=== PATIENT | female | born 1950 | race Caucasian/White ===

== ENCOUNTER 2017-08-09 11:16 | Emergency (ER) | payer MEDICARE ==
[~2017-08-09 11:16] MED LIST: ALLERGY RELIEF10 M1 PO; B COMPLEX & B121 TAB PO; BEANO1 TAB PO; BIOFLAX1000 MG PO; CALCIUM 500 + D1 TAB PO; CEPHALEXIN500 M1 PO; CHOLESTEROL MAN1 TAB PO; CINNAMON500 MG PO; COD LIVER OIL1 CAP PO; CRANBERRY1 CAP PO; CYCLOBENZAPRINE10 M1 PO; DEPAKOTE250 MG PO; EPA1000 MG PO; FIBER TABLETS1 TAB PO; GARLIC200 MG PO; K-DUR 1010 MEQ PO; LASIX 40MG TABL40 MG PO; MELATONIN5 MG PO; METFORMIN500 MG PO; METOLAZONE2.5 MG PO; MOBIC7.5 M1 PO; MULTIVITAMIN FO1 CAP PO; NORCO 325 MG-51 TAB PO; NYSTATIN POWDER15 GM PO; REMERON15 MG PO; RITE AID CHILDR PO; TRIAMCINOLONE0.1% TP; VITAMIN C500 MG PO; ZOCOR40 MG PO; ZOLOFT25 MG PO; ZOVIRAX5% TP
[2017-08-09 12:57] LABS: HEMATOCRIT 41.2 % (37.0-47.0); HEMOGLOBIN 13.7 g/dL (12.5-16.0); MEAN CELL VOLUME 91 fl (78-100); MEAN CORPUSCULAR HEMOGLOBIN 30 pg (27-31); MEAN CORPUSCULAR HGB CONC 33 g/dL (33-37); PLATELET COUNT 247 K/mm3 (130-400); RED BLOOD COUNT 4.55 M/mm3 (4.10-5.30); RED CELL DISTRIBUTION WIDTH 13.4 % (11.5-14.5); WHITE BLOOD COUNT 9.4 K/mm3 (4.8-10.8)
[2017-08-09 13:01] LABS: BUN/CREATININE RATIO 17.3 (6.0-26.0); CALCIUM 9.7 mg/dL (8.4-10.2); POTASSIUM 3.8 mmol/L (3.6-5.0); TOTAL BILIRUBIN 1.3 mg/dL (0.2-1.3); TOTAL PROTEIN 7.1 g/dL (6.3-8.2)
[2017-08-09 13:10] LABS: PH-URINE 5.5 (5.0 - 8.0); URINE APPEARANCE CLOUDY; URINE BILIRUBIN NEGATIVE (NEGATIVE); URINE BLOOD NEGATIVE (NEGATIVE); URINE COLOR YELLOW; URINE GLUCOSE NEGATIVE (NEGATIVE); URINE KETONE 3+ (NEGATIVE); URINE LEUKOCYTE ESTERASE 1+ (NEGATIVE); URINE NITRATE NEGATIVE (NEGATIVE); URINE PROTEIN(semi-quant) TRACE mg/dL (NEGATIVE); URINE UROBILINOGEN NORMAL (NORMAL); URINE WBC 16-30 /hpf (0-3)
[2017-08-09 13:11] LABS: URINE MUCUS PRESENT (NOT PRESENT)
[2017-08-09 13:16] LABS: LYMPHOCYTE 15 % (20-51); MONOCYTE 3 % (3-10); NEUTROPHILS 82 % (42-75)
[2017-08-09 15:31] VITALS: BP 143/74
== END 2017-08-09 15:27 | disposition home or self-care (01) ==
LOC: ED 11:16
PROVIDERS: Physician Assistant
DX: E86.0 Dehydration (principal); R55 Syncope and collapse; R82.4 Acetonuria; E11.9 Type 2 diabetes mellitus without complications; K21.9 Gastro-esophageal reflux disease without esophagitis; F31.9 Bipolar disorder, unspecified; Z79.4 Long term (current) use of insulin
CPT/HCPCS: J7030

== ENCOUNTER → 2017-08-21 | Outpatient (CLI) | payer MEDICARE ==
[2017-08-09 15:31] VITALS: BP 143/74
== END ==
LOC: MAMMO 08:48
DX: Z12.31 Encounter for screening mammogram for malignant neoplasm of breast (principal)
CPT/HCPCS: G0202

== ENCOUNTER → 2017-09-17 | Day surgery (SDC) | payer MEDICARE | LOC: MSO 08:37 | DX: R63.4 Abnormal weight loss (principal); R68.81 Early satiety; D12.0 Benign neoplasm of cecum; E11.9 Type 2 diabetes mellitus without complications; K63.5 Polyp of colon; E78.00 Pure hypercholesterolemia, unspecified; D64.9 Anemia, unspecified; F32.9 Major depressive disorder, single episode, unspecified; K21.9 Gastro-esophageal reflux disease without esophagitis | CPT/HCPCS: 00810; J2704; J7030 ==

== ENCOUNTER → 2018-04-30 | Outpatient (CLI) | payer MEDICARE | LOC: RAD 14:42 | DX: R22.41 Localized swelling, mass and lump, right lower limb (principal); M79.661 Pain in right lower leg; R79.1 Abnormal coagulation profile ==

== ENCOUNTER → 2018-06-19 | Outpatient (CLI) | payer MEDICARE | LOC: MAMMO 06-12 11:30 → RAD 10:25 → MAMMO 10:45 | DX: M81.0 Age-related osteoporosis without current pathological fracture (principal) ==

== ENCOUNTER → 2018-08-28 | Outpatient (CLI) | payer MEDICARE | LOC: MAMMO 08-21 16:00 | DX: Z12.31 Encounter for screening mammogram for malignant neoplasm of breast (principal) ==

== ENCOUNTER → 2019-08-25 | Outpatient (CLI) | payer MEDICARE | LOC: RAD 15:14 | DX: R60.0 Localized edema (principal) ==

== ENCOUNTER → 2019-09-15 | Outpatient (CLI) | payer MEDICARE | LOC: RAD 15:33 | DX: I34.0 Nonrheumatic mitral (valve) insufficiency (principal); R60.0 Localized edema ==

== ENCOUNTER → 2020-03-11 | Outpatient (CLI) | payer MEDICARE | LOC: RAD 12:52 | DX: L03.115 Cellulitis of right lower limb (principal); R60.0 Localized edema ==

== ENCOUNTER → 2020-04-27 | Outpatient (CLI) | payer MEDICARE | LOC: MAMMO 11:25 | DX: Z12.31 Encounter for screening mammogram for malignant neoplasm of breast (principal) ==